=== PATIENT | female | born 1965 | race African-American/Black ===

== ENCOUNTER 2017-05-05 09:06 | Outpatient (CLI) | payer OTHER ==
--- NOTE | 2017-05-05 11:54 | MMO ---
BILATERAL SCREENING MAMMOGRAMS: Comparison: 2014 This study is interpreted with the assistance of computer aided detection. FINDINGS: Heterogeneously dense glandular pattern is noted. There are bilateral breast implants which remain in tact and unchanged in appearance. There is evidence of a new retroareolar nodule measuring approximately 7 mm seen on push-back views o nly. This is seen in the retroareolar region of the left breast on both push-back CC and MLO projecti ons. Recommend this be further evaluated with spot views. IMPRESSION: BIRADS 0 - incomplete exam. Further imaging left breast required. POS: SHEKHAR
== END 2017-05-05 09:07 | disposition home or self-care (01) ==
LOC: SCSMAMMO 09:06
PROVIDERS: ATTEND Family Medicine
DX: Z12.31 Encounter for screening mammogram for malignant neoplasm of breast (principal)
CPT/HCPCS: 77067

== ENCOUNTER 2017-06-25 08:11 | Outpatient (CLI) | payer OTHER | END 2017-06-25 08:12 | disposition home or self-care (01) | LOC: BICMAMMO 08:11 | PROVIDERS: ATTEND Family Medicine | DX: N63.20 Unspecified lump in the left breast, unspecified quadrant (principal); Z85.41 Personal history of malignant neoplasm of cervix uteri | CPT/HCPCS: G0279 ==

== ENCOUNTER 2017-12-23 08:04 | Outpatient (CLI) | payer OTHER ==
--- NOTE | 2017-12-23 09:40 | ULT ---
LEFT BREAST ULTRASOUND: Date: 12/23/17 HISTORY: Six month follow-up cyst. COMPARISON: Ultrasound dated 06/25/17. FINDINGS: Size unchanged cyst with single septation left breast 3 o'clock, a centimeter from the nipple. No new abnormality. IMPRESSION: BIRADS 2: Benign Finding(s). Continued screening recommended. POS: OFF
== END 2017-12-23 08:05 | disposition home or self-care (01) ==
LOC: BICULT 08:04
PROVIDERS: ATTEND Family Medicine
DX: N63.20 Unspecified lump in the left breast, unspecified quadrant (principal)

== ENCOUNTER 2018-07-06 08:51 | Outpatient (CLI) | payer OTHER ==
--- NOTE | 2018-07-06 10:33 | MMO ---
Bilateral MAMMO Bilat Screen [facility]. CLINICAL HISTORY: Patient is 53 years old and is seen for screening. The patient has no family history of breast cancer. The patient has no personal history of cancer. The patient has a history of bilateral Implants in 2002. There are bilateral pre-pectoral saline implants VIEWS: The views performed were: bilateral craniocaudal; bilateral mediolateral oblique; and bilateral Implant displaced. FILMS COMPARED: The present examination has been compared to prior imaging studies performed at [facility] on 05/05/2017, and at [facility] on 06/25/2017. This study has been interpreted with the assistance of computer-aided detection. MAMMOGRAM FINDINGS: The breasts are heterogeneously dense, which could obscure a lesion on mammography. Finding 2: There are stable benign appearing calcifications seen in both breasts. There are no suspicious masses, suspicious calcifications, or new areas of architectural distortion. IMPRESSION: THERE IS NO MAMMOGRAPHIC EVIDENCE OF MALIGNANCY. A ROUTINE FOLLOW-UP MAMMOGRAM IN 1 YEAR IS RECOMMENDED. ACR BI-RADS Category 2 - Benign finding MAMMOGRAPHY NOTE: 1. A negative mammogram report should not delay a biopsy if a dominant of clinically suspicious mass is present. 2. Approximately 10% to 15% of breast cancers are not detected by mammography. 3. Adenosis and dense breasts may obscure an underlying neoplasm.
== END 2018-07-06 08:52 | disposition home or self-care (01) ==
LOC: SCSMAMMO 08:51
PROVIDERS: ATTEND Family Medicine
DX: Z12.31 Encounter for screening mammogram for malignant neoplasm of breast (principal); Z98.82 Breast implant status
CPT/HCPCS: 77067